=== PATIENT | female | born 1970 | race Caucasian/White ===

== ENCOUNTER 2024-01-09 16:18 | Emergency (ER) | payer BC, SELFPAY ==
[2024-01-09 16:22] VITALS: BP 164/92; PULSE 83; RESP 18; TEMP 37.3; O2SAT 94; BMI 28.3
--- NOTE | 2024-01-09 16:27 | XR_ITS ---
Patient: ISAI CASANOVA Facility:?[facility] Patient ID:?[id number] Site Patient ID:?[id number]. Site :?[id number] Study:?XRay-Extremity Left HUMERUS 2V-01/09/2024 4:49:30 PM Ordering Physician:FABIÁN Final Report: Indication: Left arm pain after a fall Technique: Two views of the left humerus Comparison: None Findings/impression : No acute fracture or malalignment. No suspicious osseous lesions. The soft tissues are within normal limits. The visualized left lung is clear. Dictated by Velasquez Avalos MD @ 01/09/2024 5:30:58 PM Signed by:?Velasquez Avalos MD @01/09/2024 5:30:58 PM (Electronic Signature)
--- NOTE | 2024-01-09 17:27 | ED.UPPEXIN ---
HPI - Extremity Injury (Upper) General Chief Complaint: Extremity Pain/Injury, Upper Stated Complaint: Fell on L arm, painful Time Seen by Provider: 01/09/24 16:20 History of Present Illness HPI narrative: This 53-year-old female comes in with an injury to her left shoulder that occurred about 16 hours prior to arrival. At about 1:00 a.m. early this morning she states she was coming up some steps into the kitchen and she tripped and slipped falling onto her right shoulder. She states that she did not hit her head or have loss of consciousness. She has not slept since then because of pain. The pain is also causing decreased range of motion. Her pain is located in the proximal humerus and shoulder joint. She arrives with no obvious sign of deformity on initial exam. Related Data Home Medications Medication Instructions Recorded Confirmed simvastatin 80 mg tablet 80 mg PO DAILY 07/03/23 01/09/24 Previous Rx's Medication Instructions Recorded ibuprofen 600 mg tablet 600 mg PO Q6H PRN pain #20 tabs 07/03/23 hydrocodone 5 mg-acetaminophen 325 1 tab PO Q4-6H PRN pain #15 tabs 01/09/24 mg tablet Allergies Allergy/AdvReac Type Severity Reaction Status Date / Time amitriptyline Allergy Unknown Verified 01/09/24 16:26 hydrocodone Allergy Unknown Verified 01/09/24 16:26 morphine Allergy Unknown Verified 01/09/24 16:26 Penicillins Allergy Verified 01/09/24 16:26 Review of Systems Status of ROS: Reports: 10 or more systems reviewed and unremarkable except as noted in History and below Narrative: Constitutional: No fevers, no weight gain or loss. Eyes: No discharge. No vision changes. HENT: No congestion, no sore throat, no ear pain. Cardiovascular: No chest pain, no palpitations. Respiratory: No shortness of breath, no wheezes, no cough. Gastrointestinal: No abdominal pain, no vomiting, no diarrhea. Genitourinary: No dysuria, no hematuria. Musculoskeletal: Left upper extremity pain as described above. She also reports a trigger finger in her left hand and is scheduled to have surgery for this next week. Skin: No rashes, no pruritis. Neurological: No dizziness, weakness, sensory change, speech change. Endo/Heme/Allergies: No bruising or bleeding. No polydipsia. Pysch: no suicidality, no anxiety, no insomnia. All other systems reviewed and are negative. PFSH PFSH Social History Smoking Status: Never smoker How often do you have a drink containing alcohol: never AUDIT-C Alcohol total score: 0 Non-prescribed substance use: denies use Exam Narrative: Exam Narrative: Constitutional: Well-developed, well-nourished, no acute distress. HEENT: Normocephalic, atraumatic. Neck: Normal range of motion. Nontender. Supple. Heart: Regular. No murmurs. Normal rate. Intact distal pulses. Lungs: Clear to auscultation. No chest discomfort. No wheezes, rhonchi, or rales. Abdomen: Normal bowel sounds. Nontender. No rebound tenderness. Genitalia: Deferred. Back: No midline tenderness. Normal range of motion. Extremities: Left shoulder pain more located around the shoulder joint area. No sign of deformity or erythema. No sign of skin injury or swelling. I did not do a range of motion exam of her left shoulder because of pain. Skin: Intact. No rash. Warm. No erythema or pallor. Neurologic: No altered sensation. No weakness. Alert and oriented. Psychiatric: No suicidality. No anxiety or depression. No insomnia. Nursing notes and vitals signs are reviewed. Const: Vital Signs, click to edit/add: Vital Signs - 24 hr 01/09/24 16:22 01/09/24 18:05 Temperature 99.1 F 99.1 F Pulse Rate [Pulse Oximeter] 83 83 Respiratory Rate 18 18 Blood Pressure [Ri ght Upper Arm] 164/92 H 164/92 H Pulse Oximetry 94 Oxygen Delivery Me thod Room Air Course Vital Signs Vital signs: Initial Vital Signs Temperature 99.1 F 01/09/24 16:22 Temperature Source Temporal Artery Scan 01/09/24 16:22 Pulse Rate 83 01/09/24 16:22 Respiratory Rate 18 01/09/24 16:22 Blood Pressure 164/92 H 01/09/24 16:22 Blood Pressure Mean 116 H 01/09/24 16:22 Blood Pressure Position Sitting 01/09/24 16:22 Pulse Oximetry 94 01/09/24 16:22 Oxygen Delivery Method Room Air 01/09/24 16:22 Vital Signs Temperature 99.1 F 01/09/24 16:22 Pulse Rate 83 01/09/24 16:22 Respiratory Rate 18 01/09/24 16:22 Blood Pressure 164/92 H 01/09/24 16:22 Pulse Oximetry 94 01/09/24 16:22 Oxygen Delivery Method Room Air 01/09/24 16:22 Temperature 99.1 F 01/09/24 18:05 Pulse Rate 83 01/09/24 18:05 Respiratory Rate 18 01/09/24 18:05 Blood Pressure 164/92 H 01/09/24 18:05 Pulse Oximetry 94 01/09/24 16:22 Oxygen Delivery Method Room Air 01/09/24 16:22 MDM - Extremity Injury (Upper) MDM Narrative Medical decision making narrative: This patient comes in with an injury to her left shoulder as described above. X-ray imaging by my review shows no sign of fracture or dislocation. Radiology report is pending. The patient did receive a sling and states that she prefers to return home and have us call her if there is any significant discrepancy in the radiology report forthcoming. She does have follow-up appointment with orthopedic clinic next week and scheduled to have a surgery for a trigger finger in her left hand. She received a prescription for [place] for pain relief. Discharge Plan Discharge Clinical Impression: Injury of shoulder, left Patient Disposition: Home, Self-Care Condition: Unchanged Additional Instructions: Wear sling as needed. Follow-up with orthopedic clinic as scheduled. Take medication as needed and directed. Return if worsening. Prescriptions: New hydrocodone-acetaminophen 5-325 mg tablet 1 tab PO Q4-6H PRN (Reason: pain) Qty: 15 0RF No Action simvastatin 80 mg tablet 80 mg PO DAILY ibuprofen 600 mg tablet 600 mg PO Q6H PRN (Reason: pain) Qty: 20 0RF Hold Instructions: On hold for surgery Follow Up/Referrals: Provider,Not a Local [Primary Care Provider] - Stand Alone Forms: [employer] Info Instructions
[2024-01-09 18:05] VITALS: BP 164/92; PULSE 83; RESP 18; TEMP 37.3
== END 2024-01-09 18:05 | disposition home or self-care (01) ==
LOC: ED 17:40
PROVIDERS: Emergency Provider Emergency Medicine Emergency Medical Services
DX: S49.82XA Other specified injuries of left shoulder and upper arm, initial encounter (principal); W10.9XXA Fall (on) (from) unspecified stairs and steps, initial encounter
CPT/HCPCS: 73060; 99283; 99284

== ENCOUNTER 2024-05-02 13:00 | Outpatient (RCR) | payer BC, SELFPAY | END 2024-08-30 23:59 | disposition home or self-care (01) | PROVIDERS: PCP Orthopaedic Surgery; Visit Provider Orthopaedic Surgery | DX: M19.011 Primary osteoarthritis, right shoulder (principal); M75.41 Impingement syndrome of right shoulder; Z51.89 Encounter for other specified aftercare; M75.111 Incomplete rotator cuff tear or rupture of right shoulder, not specified as traumatic | CPT/HCPCS: 97110; 97140; 97163 ==

== ENCOUNTER 2024-08-12 09:36 | Emergency (ER) | payer BC, SELFPAY ==
[2024-08-12 09:40] VITALS: BP 155/101; PULSE 91; RESP 20; TEMP 36.9; O2SAT 95; BMI 28.3
--- NOTE | 2024-08-12 09:40 | ED_ITS ---
HPI - General Adult General Date Seen: 08/12/24 Chief complaint: Cough Stated complaint: Cold symptoms that are getting worse Time Seen by Provider: 08/12/24 09:39 History of Present Illness HPI narrative: 53-year-old female with a past medical history which includes tobacco use, hyperlipidemia, GERD, degenerative disc disease of her spine and, rotator cuff tear, shoulder impingement (according to Hanyina at electronic medical record she has had recent consultations with Orthopedics), who presents to the ER today with cold symptoms and cough, getting worse. She was exposed to some people that a bad cough about 10 days ago when she was at the ortho planning getting a cast on her right wrist. A couple of days later she developed cough and cold symptoms with cough, body aches, nasal congestion, sore throat. Probably some low-grade fevers initially and a little bit of diarrhea for the 1st couple of days. Fevers have been gone for the past several days and diarrhea is resolving. Her cold has not gotten better. She has ongoing nonproductive cough. She was in the urgent care about 3 days ago on . She had a negative COVID and influenza PCR. She was put on albuterol inhaler and given Tessalon. Since then her cough been getting worse. She has not had any relief from the Tessalon. Some partial, temporary relief after albuterol inhaler usage. Coughs been getting worse. It was almost incessant last night and she and her were not able to sleep. She is feeling a little bit of shortness of breath and tightness in her chest. No chest pain. No bloody sputum. No swelling in her legs. No abdominal pain. She has had a couple of episodes of post-tussive near vomiting but no other vomiting. Diarrhea is improving. No fevers. Also this morning she is noting some pain and plugged feeling in her right ear. No sore throat. Related Data Home Medications ?Medication ?Instructions ?Recorded ?Confirmed simvastatin 80 mg tablet 80 mg PO DAILY 07/03/23 08/09/24 Previous Rx's ?Medication ?Instructions ?Recorded ibuprofen 600 mg tablet 600 mg PO Q6H PRN pain #20 tabs 07/03/23 albuterol sulfate 90 mcg/actuation 2 puff inhalation Q4-6H PRN 08/09/24 aerosol inhaler shortness of breath or wheezing #6.7 grams benzonatate 100 mg capsule 100 mg PO BID-TID PRN cough #20 08/09/24 caps albuterol sulfate 2.5 mg/3 mL 2.5 mg (3 mL) inhalation Q4H PRN 08/12/24 (0.083 %) solution for nebulization #75 mL doxycycline hyclate 100 mg capsule 100 mg PO BID 7 days #14 caps 08/12/24 nebulizer and compressor #1 ea 08/12/24 prednisone 20 mg tablet 40 mg (2 x 20 mg) PO DAILY #10 tabs 08/12/24 Allergies Allergy/AdvReac Type Severity Reaction Status Date / Time amitriptyline Allergy Unknown Verified 08/09/24 08:31 hydrocodone Allergy Unknown Verified 08/09/24 08:31 morphine Allergy Unknown Verified 08/09/24 08:31 Penicillins Allergy Verified 08/09/24 08:31 [facility] Social History Smoking Status: Current every day smoker How often do you have a drink containing alcohol: never AUDIT-C Alcohol total score: 0 Non-prescribed substance use: denies use Exam Narrative: Exam Narrative: Constitutional: Appears well-developed and well-nourished. Alert. Frequent, nonproductive cough. Overall Conversant. She is not having respiratory distress. Non toxic. HENT: Head: Atraumatic. Nose: Nose normal. Right ear: Mastoid, pinna, canal normal. TM is erythematous. There is some opaque fluid behind it. TM appears to be bulging Left ear: Pinna, mastoid, canal normal. TM is not erythematous but there is some fluid behind it. No bulging. Mouth/Throat: Oral mucosa is clear and moist. no trismus. Pharynx normal. Tonsils symmetric. No tonsillar enlargement, erythema, or exudate. Eyes: Conjunctivae normal. EOM normal. Pupils equal, round, and reactive to light. No scleral icterus. Neck: Normal range of motion. Neck supple. No tracheal deviation present. Cardiovascular: Normal rate, regular rhythm. No gallop. No friction rub. No murmur heard. Symmetric radial artery pulses Pulmonary/Chest: Frequent hacking cough. Effort normal. No stridor. No respiratory distress. Diffuse rhonchi and wheezing bilaterally. No focal rales.. No tenderness. Abdominal: Soft.No distension. No mass. No tenderness. No rebound. No guarding. Musculoskeletal: RUE: Normal range of motion. No tenderness. No deformity LUE: Normal range of motion. No tenderness. No deformity RLE: Normal range of motion. No edema. No tenderness. No deformity LLE: Normal range of motion. No edema. No tenderness. No deformity Neurological: Alert and oriented to person, place, and time. Normal strength. CN II-VII intact. No sensory deficit. GCS eye subscore is 4. GCS verbal subscore is 5. GCS motor subscore is 6. Normal coordination Skin: Skin is warm and dry. No rash noted. No pallor. Normal capillary refill. Psychiatric: Normal mood. Normal affect. Const: Vital Signs, click to edit/add: Vital Signs - 24 hr 08/12/24 09:40 Temperature 98.4 F Pulse Rate [Pulse Oximeter] 91 Respiratory Rate 20 Blood Pressure [Le ft Upper Arm] 155/101 H Pulse Oximetry 95 Oxygen Delivery Me thod Room Air Course Course ED Course: Recheck-feeling much better after neb. Lung sounds still mildly wheezy but much improved compared to arrival Vital Signs Vital signs: Initial Vital Signs Temperature 98.4 F 08/12/24 09:40 Temperature Source Temporal Artery Scan 08/12/24 09:40 Pulse Rate 91 08/12/24 09:40 Respiratory Rate 20 08/12/24 09:40 Blood Pressure 155/101 H 08/12/24 09:40 Blood Pressure Mean 119 H 08/12/24 09:40 Blood Pressure Position Sitting 08/12/24 09:40 Pulse Oximetry 95 08/12/24 09:40 Oxygen Delivery Method Room Air 08/12/24 09:40 Vital Signs Temperature 98.4 F 08/12/24 09:40 Pulse Rate 91 08/12/24 09:40 Respiratory Rate 20 08/12/24 09:40 Blood Pressure 155/101 H 08/12/24 09:40 Pulse Oximetry 95 08/12/24 09:40 Oxygen Delivery Method Room Air 08/12/24 09:40 Temperature 98.4 F 08/12/24 09:40 Pulse Rate 91 08/12/24 09:40 Respiratory Rate 20 08/12/24 09:40 Blood Pressure 155/101 H 08/12/24 09:40 Pulse Oximetry 95 08/12/24 09:40 Oxygen Delivery Method Room Air 08/12/24 09:40 Medications Administered Medications: Discontinued Medications Generic Name Dose Route Start Last Admin Trade Name Michelle PRN Reason Stop Dose Admin Albuterol/Ipratropium 1 neb 08/12/24 10:05 08/12/24 10:11 Iprat-Albut 0.5-2.5 Mg/3 Ml Neb IH 08/12/24 10:06 1 neb ONCE ONE Administration Medical Decision Making MDM Narrative Medical decision making narrative: This patient presents for evaluation of who a week's history of cold symptoms and cough with worsening cough over the past couple of days and now also right ear pain and fullness. Overall symptoms sounded initially like they probably started as if they were a viral URI. She was seen in urgent care a couple of days ago and had negative COVID and influenza PCR. She has been using an inhaler and apparently was wheezy in the urgent care the other day. She is a smoker. She has had only marginal improvement with inhaler and cough has been getting worse. With worsening cough consider possible evolving pneumonia. However no focal consolidation noted on lung exam. She also has new right ear pain and fullness with exam findings of a right otitis media. We will put her on antibiotics to treat the otitis media and these would also likely cover a pneumonia if it were present. Therefore will hold off on chest x-ray for today. Discussed this plan with the patient and she is in agreement. She would prefer to hold off on chest x-ray unless it is really absolutely necessary. Will treat with doxycycline 100 mg p.o. b.i.d. for 7 days. She had been having some diarrhea but that is improving and no other worsening gastrointestinal symptoms at this point and no signs of dehydration. I do not think she needs IV fluids. She does have significant wheezing indicative of bronchospasm on my lung auscultation today. Treated with DuoNeb here in the ER. Significant improvement in the way she feels and improved lung sounds after neb. Will send in prescriptions for a nebulizer machine and nebulizer medications for her to use every 4 hours as needed for the next couple of days. She already has an inhaler which she has been using with limited effect at home. Will add the nebulizer which may be more effective for her. She is not sure if her insurance will cover the neb machine. If she is not able to get the machine field she will continue use her albuterol inhaler as needed. Will also treat her with steroids-prednisone 40 mg daily for 5 days. Close followup with primary care physician is indicated. Return to ED for worsening trouble breathing, weakness, fever > 103, protracted vomiting, confusion, or other worsening. Discharge Plan Discharge Clinical Impression: Otitis media, Bronchitis Patient Disposition: Home, Self-Care Condition: Stable Instructions: Ear Infection (ED), Acute Bronchitis (ED) Additional Instructions: As we discussed, to treat your cough you can do the following steps: 1. Use your nebulizer or albuterol inhaler every 4 hours as needed. 2. Start the prednisone (steroid) once daily for the next 5 days 3. Start the doxycycline( antibiotic) twice daily for the next 7 days. If you feel like you are getting more short of breath, worsening tightness in her chest, high fever, worsening weakness, or worsening cough or have other worsening symptoms, please come back to the emergency room right away to be rechecked. Prescriptions: New doxycycline hyclate 100 mg capsule 100 mg PO BID 7 Days Qty: 14 0RF prednisone 20 mg tablet 40 mg PO DAILY Qty: 10 0RF albuterol sulfate 2.5 mg /3 mL (0.083 %) solution for nebulization 2.5 mg inhalation Q4H PRNQty: 75 0RF (DME) nebulizer and compressor Device See Rx Instructions .Route Qty: 1 0RF Rx Instructions: As directed No Action simvastatin 80 mg tablet 80 mg PO DAILY ibuprofen 600 mg tablet 600 mg PO Q6H PRN (Reason: pain) Qty: 20 0RF albuterol sulfate 90 mcg/actuation HFA aerosol inhaler 2 puff inhalation Q4-6H PRN (Reason: shortness of breath or wheezing) Qty: 6.7 0RF benzonatate 100 mg capsule 100 mg PO BID-TID PRN (Reason: cough) Qty: 20 0RF Follow Up/Referrals: Provider,Not a Local [Non-Staff] - Stand Alone Forms: [employer] Info Instructions
[2024-08-12] MEDS: IPRAT-ALBUT 0.5-2.5 MG/3 ML NEB 1 NEB IH (10:11)
== END 2024-08-12 10:42 | disposition home or self-care (01) ==
PROVIDERS: Emergency Provider Emergency Medicine; PCP Orthopaedic Surgery
DX: J40 Bronchitis, not specified as acute or chronic (principal); H66.91 Otitis media, unspecified, right ear
CPT/HCPCS: 94640; 99282; 99283; 99284